=== PATIENT | male | born 1955 | race Caucasian/White ===

== ENCOUNTER 2024-04-21 15:54 | Emergency (ER) | payer OTHER, SELFPAY ==
[2024-04-21 15:56] VITALS: BP 122/66
--- NOTE | 2024-04-21 16:42 | ED.GENMED ---
History of Present Illness
General
Chief Complaint: Head Injury
Source: patient
Exam Limitations: none
Time Seen by Provider: 04/21/24 16:17
History of Present Illness
History of Present Illness:
69-year-old male on [place] presents after trip and fall. He fell 6 days ago. He notes persistent swelling and pain around the left eye and headache with nausea. He also notes neck pain. No loss of consciousness at the time. Not been evaluated
for this yet. No chest pain or shortness of breath. No other complaints
Past History
Past History
ED Past Medical History: Arrthythmia (Paroxysmal atrial fibrillation, ventricular tachycardia), CAD, CHF, HTN, Hypercholesterolemia, IDDM and Other (chronic back pain)
ED Past Surgical History: Appendectomy, Cardiac and Other
Social History
Tobacco: Smoker
Alcohol: None
Drug: None
Personal:
Living: with family
Employment: Retired
Family History
Family History: Other (Noncontributory)
Phy Exam
Physical Exam
Physical Exam:
General: Well-appearing male no acute respiratory distress
HEENT: Normocephalic ecchymosis noted in the periorbital region of the left eye. Pupils equal round reactive to light extraocular motions are intact
Heart: Regular rate and rhythm
Lungs: Clear no wheeze
Musculoskeletal exam: Mild diffuse tenderness about the cervical spine paraspinous area good range of motion all extremities
Neurologic: Normal gait conversing appropriately alert oriented x 3
Course
Orders/Labs/Results
Orders:
Orders
04/21/24 15:56
CT Head W/o Iv Contrast Urgent
Comment:
Reason For Exam: fall on elip[place]
04/21/24 16:25
CT Cervical Spine W/o Iv Contr Urgent
Comment:
Reason For Exam: neck pain after fall
CT Orbits W/o Iv Contrast Urgent
Comment:
Reason For Exam: fall, left periorbital swelling
Vital Signs
Initial and Last Documented VS:
Initial Vital Signs
Temp Pulse Resp BP Pulse Ox
98.2 F 68 18 122/66 97
04/21/24 15:56 04/21/24 15:56 04/21/24 15:56 04/21/24 15:56 04/21/24 15:56
Last Documented Vital Signs
Temp Pulse Resp BP Pulse Ox
98.2 F 60 18 108/65 100
04/21/24 15:56 04/21/24 17:21 04/21/24 17:21 04/21/24 17:21 04/21/24 17:21
MDM/Problems Addressed
Differential Diagnosis Includes:
Mechanical fall with head strike on blood thinner. Concern for skull fracture orbital fracture versus intracranial hemorrhage. Will order CT of head and orbits and cervical spine.
*Critical Care Note
Total Time (30-74mins, 75-104mins- exclusive of procedures): Not Applicable
Update Note
Update Note:
CT of head cervical spine and orbits showed no acute traumatic injury. There is significant degenerative changes throughout the cervical spine with disc bulges. CT of the head is negative for acute finding. There is old fractures noted to the
left periorbital area. Patient reassured. No indication for admission. Stable for discharge
ED Attending Note
-
Portions of this chart may have been created with voice recognition software.� Occasional wrong word or��sound alike� substitutions may have occurred due to the inherent limitations of voice recognition software.
Discharge Plan
Departure
Patient Disposition: Home (Routine Discharge)
Date of Disposition: 04/21/24
Time of Disposition: 18:26
Patient with high blood pressure during this ER visit?: No
Discharge Problem:
Fall
Instructions: Contusion (DC), Minor Head Injury (DC)
Prescriptions:
No Action
carvedilol 12.5 MG tablet
18.75 mg PO BID
aspirin 81 MG tablet,delayed release (DR/EC)
81 mg PO DAILY
metformin 1,000 MG tablet
1,000 mg PO BID@0800,1700 Qty: 60 0RF
insulin aspart U-100 [Novolog FlexPen U-100 Insulin] 300 UNITS/3 ML insulin pen
12 units SC AC
Patient Comments:
10/06/18 SS; PT REPORT HE WILL OCCASIONALLY TAKE MORE AFTER HE EATS WHEN HE RECHECKS HIS BS.
tizanidine 4 MG tablet
4 mg PO BID
gabapentin 400 MG capsule
800 mg PO BID
oxycodone 15 MG tablet
30 mg PO Q6HPRN PRN (Reason: breakthrough pain)
baclofen 20 MG tablet
20 mg PO BID
insulin detemir U-100 [Levemir U-100 Insulin] 1,000 UNITS/10 ML solution
75 units SC HS
atorvastatin 80 MG tablet
80 mg PO QPM Qty: 30 1RF
clopidogrel 75 MG tablet
75 mg PO DAILY Qty: 30 1RF
pantoprazole 40 MG tablet,delayed release (DR/EC)
40 mg PO DAILY Qty: 30 1RF
apixaban [Eliquis] 5 MG tablet
5 mg PO BID Qty: 60 1RF
bupropion HCl 150 MG tablet sustained-release 12 hr
150 mg PO BID
Patient Comments:
take 1 tablet every morning for 3 days, then 1 tablet BID
amiodarone [Pacerone] 200 MG tablet
400 mg PO DAILY
tizanidine 4 MG tablet
4 mg PO DAILYPRN PRN (Reason: spasms)
gabapentin 400 MG capsule
800 mg PO DAILYPRN PRN (Reason: pain)
oxycodone [OxyContin] 20 MG tablet,oral only,ext.rel.12 hr
20 mg PO Q12 0RF
lisinopril 10 MG tablet
5 mg PO DAILY Qty: 30 0RF
Referrals:
Porrino,Lewis., DO [Family Provider] -
Activity Restrictions/Additional Instructions:
Rest. Use Tylenol for pain. Return if worse otherwise follow-up with your doctor.
Interventions
Interventions:
*Risk Screen - Suicide Last Done: 04/21/24 15:56
*General Assessment Last Done: 04/21/24 15:56
*Neglect/Abuse Screening Last Done: 04/21/24 15:56
*ED COVID-19 Vaccine History Last Done: 04/21/24 15:56
ED- Neurological Assessment Last Done: 04/21/24 16:44
ED-Skin Assessment Last Done: 04/21/24 16:45
Discharge Date and Time
Print Language: AZERI
[2024-04-21 17:21] VITALS: BP 108/65
[2024-04-21 18:33] VITALS: BP 121/72
== END 2024-04-21 18:39 | disposition home or self-care (01) ==
LOC: EMR 15:54
PROVIDERS: EMERGENCY PHYSICIAN Student in an Organized Health Care Education/Training Program; FAMILY PHYSICIAN Family Medicine
DX: R22.0 Localized swelling, mass and lump, head (principal); W01.0XXA Fall on same level from slipping, tripping and stumbling without subsequent striking against object, initial encounter; I48.0 Paroxysmal atrial fibrillation; I25.10 Atherosclerotic heart disease of native coronary artery without angina pectoris; I11.0 Hypertensive heart disease with heart failure; I50.9 Heart failure, unspecified; E11.9 Type 2 diabetes mellitus without complications; E78.00 Pure hypercholesterolemia, unspecified; F17.200 Nicotine dependence, unspecified, uncomplicated; Z79.01 Long term (current) use of anticoagulants; Z90.49 Acquired absence of other specified parts of digestive tract
CPT/HCPCS: 99284; 70450; 70480; 72125

== ENCOUNTER 2025-02-06 03:44 | Inpatient (IN) | payer OTHER, SELFPAY ==
[2025-02-05 23:48] LABS: Glucose - Point of Care 134 mg/dl (70-99)
[2025-02-05 23:54] VITALS: BP 99/45
[2025-02-06] VITALS (49 sets, daily range): BP systolic 73–148; BP diastolic 41–121; BMI 39.1; BMI 35.4
--- NOTE | 2025-02-06 | ED.GENMED ---
History of Present Illness
General
Chief Complaint: Change in Mental Status
Source: patient and family
Time Seen by Provider: 02/06/25 00:00
History of Present Illness
History of Present Illness:
70-year-old male presents emergency department accompanied by his daughter and son-in-law. They live out of town but are here for the weekend. They state that he was 'coherent' earlier today. Around 6 PM he came to their storage facility to help
them move things, and they state that he seemed to be progressively tired and looked 'shaky' at times. No tonic-clonic activity noted. They state that he sat in a chair and was falling asleep from time to time which is 'not uncommon' for him.
However, throughout the night, he began to fall asleep on and off which began to concern them. At dinner, he kept falling asleep although they were able to arouse him and get him to eat. With his increasing difficulty in waking him up as the night
progressed they decided to bring him here. Accu-Chek noted here at 134. Patient reportedly has had poor p.o. intake for the last week. Here in the emergency department the patient denies any complaints. He does not drink alcohol heavily and has
not no prior history of liver disease. He does take oxycodone and OxyContin regularly for chronic pain but does not take more than the prescribed dose. He denies any new ingestions. He denies any pain, chest pain, headache, neck pain, dizziness,
fever, chills, nausea, vomiting, new back pain, or other complaints.
Past History
Past History
ED Past Medical History: Arrthythmia (Paroxysmal atrial fibrillation, ventricular tachycardia), CAD, CHF, HTN, Hypercholesterolemia, IDDM and Other (chronic back pain)
ED Past Surgical History: Appendectomy, Cardiac and Other
Social History
Tobacco: Smoker
Alcohol: Occasional
Drug: None
Personal:
Living: with family
Employment: Retired
Family History
Family History: Other (Noncontributory)
Phy Exam
Physical Exam
Physical Exam:
GENERAL: Drowsy but arousable, in no apparent distress
EYE: pupils equal and reactive, no photophobia, EOMI
NECK: Supple, no significant adenopathy.
ENT: o/p clr, mmm.
CARDIAC: Regular rate and rhythm .
LUNGS: Equal breath sounds bilaterally, no acute respiratory distress, occasional wheezing noted, no rales or rhonchi
ABDOMEN: Soft, without focal tenderness, no r/g, no cvat
NEUROLOGICAL: Drowsy but arousable, oriented x 3, [id number] normal, motor 5 out of 5, sensory intact, cranial nerves II through XII intact.
SKIN: Warm and dry, skin intact.
MUSCULOSKELETAL: No edema, well perfused.
PSYCH: Normal and appropriate interaction, patient able to joke with myself and his daughter.
Sepsis
Sepsis Screening
Sepsis Assessment: Severe Sepsis
Sepsis Screening: Hypotension
Sepsis Screen
Sepsis Screen: Severe Sepsis
Date: 02/06/25
Time: 02:09
Course
Orders/Labs/Results
Orders:
Orders
02/05/25 23:58
EKG [Electrocardiogram (*1)] Urgent
Reason for Study: Tachycardia
EKG- Treatment ONCE
02/06/25 00:04
Cardiac Monitoring- Treatment ONCE
Pulse Ox/cont/shift [RESP] Stat
Quantity: 1
02/06/25 00:05
CR Chest - 2 Views Urgent
Comment:
Reason For Exam: ms change
02/06/25 00:06
Acetaminophen Urgent
Alcohol Urgent
Ammonia Urgent
Complete Blood Count/No Diff Urgent
Comprehensive Metabolic Panel Urgent
Salicylate Urgent
02/06/25 00:40
COVID-19 Antigen Urgent
Source: Nasal Swab
Lactic Acid Q4H
Comment: CANCEL 2nd LACTIC ACID IF 1st LACTIC ACID IS LESS THAN 2
Blood Culture Q30M
EMANUEL Source: Blood/Venous
Specimen Description:
Influenza A+B Rapid Molecular Urgent
EMANUEL Source: Nasal Swab
Specimen Description:
02/06/25 01:21
0.9% Sodium Chloride 1000 ml [Nss] 2,000 ml IV NOW STA
02/06/25 01:22
Acetaminophen [Tylenol] 1,000 mg PO NOW STA
02/06/25 01:25
Blood Culture Q30M
EMANUEL Source: Blood/Venous
Specimen Description:
02/06/25 01:33
Fentanyl, Urine Urgent
Urinalysis Reflex To Culture Urgent
Date Specimen was Collected: 02/06/25
Time Specimen was Collected: 01:32
Urine Drug Abuse Screen Urgent
Date Specimen was Collected: 02/06/25
Time Specimen was Collected: 01:32
Urine Microscopic Reflex Cult Urgent
Urine Culture Urgent
EMANUEL Source: U
Specimen Description:
Date Specimen was Collected: 02/06/25
Time Specimen was Collected: 01:32
02/06/25 04:30
Lactic Acid Q4H
Comment: CANCEL 2nd LACTIC ACID IF 1st LACTIC ACID IS LESS THAN 2
Abnormal Lab Results
02/05/25 02/06/25 02/06/25
23:47 00:06 01:33
WBC 13.1 H 10^3/uL
(4.8-10.8)
RBC 3.28 L 10^6/uL
(4.70-6.10)
Hgb 9.9 L g/dL
(13.0-18.0)
Hct 29.2 L %
(39.0-52.0)
Plt Count 75 L 10^3/uL
(130-400)
MPV 13.7 H fL
(7.4-10.4)
Sodium 127 L mmol/L
(135-145)
Chloride 96 L mmol/L
(98-107)
BUN 39 H mg/dl
(9-20)
Creatinine 2.1 H mg/dL
(0.7-1.3)
Glucose 136 H mg/dl
(70-99)
AST 118 H U/L
(17-59)
Ammonia < 9 L umol/L
(9-30)
Urine Urobilinogen 2+ A
(Neg - 1+)
Leukocyte Esterase Rfl 1+ A
(Negative)
Urine Bacteria (Reflex) Many A
(Negative)
Urine Albumin (Reflex) 2+ A
(Neg - Trace)
Salicylates < 1.0 L mg/dl
(2.0-20.0)
Urine Opiates Screen Positive H
(Negative)
Ur Oxycodone Screen Positive H
(Negative)
Acetaminophen < 10 L ug/ml
(10-30)
U Marijuana (THC) Screen Positive H
(Negative)
POC Glucose 134 H mg/dl
(70-99)
02/06/25 00:06
02/06/25 00:06
Vital Signs
Initial and Last Documented VS:
Initial Vital Signs
Pulse Resp
60 14
02/05/25 23:42 02/05/25 23:42
Last Documented Vital Signs
Temp Pulse Resp BP Pulse Ox
100.1 F 66 15 111/95 97
02/06/25 00:20 02/06/25 01:45 02/06/25 01:45 02/06/25 01:41 02/06/25 01:45
*Pulse Oximetry
Patient hypoxic: yes
*Critical Care Note
Total Time (30-74mins, 75-104mins- exclusive of procedures): 35
Update Note
Update Note:
Patient presents to the Emergency Department with increasing sleepiness
Number and Complexity of Problems Addressed at the Encounter
� Chronic conditions affecting care:
� Acute Exacerbation and/or Progression of Chronic Illness:
� Differential Diagnosis includes: But not limited to medication reaction, alcohol intoxication, electrolyte disorder, liver disease, etc. etc. etc.
Amount and/or Complexity of Data to be Reviewed and Analyzed
� I performed an independent evaluation of and my interpretation is:
EKG: EKG, read by me, normal sinus rhythm, inferior Q waves unchanged from prior, no acute ischemia
CT:
Xrays: Chest x-ray read by me questionable left lower lobe infiltrate
Laboratory Studies: Leukocytosis, anemia (slightly worse compared to baseline), thrombocytopenia which is new. Patient also has new hyponatremia, prerenal azotemia, normal lactic acid. Urine not suggestive of infection
Other:
� Review of other/old records reveals: Patient was admitted for TME related to unintentional opioid overdose, discharge summary was reviewed by me
� Clinical information was obtained by an independent historian: Daughter and son-in-law
� Prescriptions/Medications Considered but not given:
� Further testing considered but not performed:
Risk of Complications and/or Morbidity or Mortality of Patient Management
� Social determinants of health affecting care:
� Discussion with other providers (PCP, Hospitalists, Consultants, etc):
� Escalation of care including admission/observation vs risk of discharge considered: Multiple reassessments of patient, clinically suspect sepsis related to pneumonia. His blood pressure transiently dropped however has returned
to normal with IV fluids. We will start antibiotics and admit patient. Family and patient updated. He remains drowsy but arousable and fully oriented without any complaints.
ED Attending Note
-
Portions of this chart may have been created with voice recognition software.� Occasional wrong word or��sound alike� substitutions may have occurred due to the inherent limitations of voice recognition software.
Discharge Plan
Departure
Patient Disposition: Admit
Date of Disposition: 02/06/25
Time of Disposition: 02:07
Admit to: Telemetry
Presentation/result/management discussed w/ accepting MD/DO: Hospitalist
Condition: Fair
Discharge Problem:
Sepsis
Prescriptions:
No Action
carvedilol 12.5 MG tablet
18.75 mg PO BID
aspirin 81 MG tablet,delayed release (DR/EC)
81 mg PO DAILY
metformin 1,000 MG tablet
1,000 mg PO BID@0800,1700 Qty: 60 0RF
insulin aspart U-100 [Novolog FlexPen U-100 Insulin] 300 UNITS/3 ML insulin pen
12 units SC AC
Patient Comments:
10/06/18 SS; PT REPORT HE WILL OCCASIONALLY TAKE MORE AFTER HE EATS WHEN HE RECHECKS HIS BS.
tizanidine 4 MG tablet
4 mg PO BID
gabapentin 400 MG capsule
800 mg PO BID
oxycodone 15 MG tablet
30 mg PO Q6HPRN PRN (Reason: breakthrough pain)
baclofen 20 MG tablet
20 mg PO BID
insulin detemir U-100 [Levemir U-100 Insulin] 1,000 UNITS/10 ML solution
75 units SC HS
atorvastatin 80 MG tablet
80 mg PO QPM Qty: 30 1RF
clopidogrel 75 MG tablet
75 mg PO DAILY Qty: 30 1RF
pantoprazole 40 MG tablet,delayed release (DR/EC)
40 mg PO DAILY Qty: 30 1RF
apixaban [Eliquis] 5 MG tablet
5 mg PO BID Qty: 60 1RF
bupropion HCl 150 MG tablet sustained-release 12 hr
150 mg PO BID
Patient Comments:
take 1 tablet every morning for 3 days, then 1 tablet BID
amiodarone [Pacerone] 200 MG tablet
400 mg PO DAILY
tizanidine 4 MG tablet
4 mg PO DAILYPRN PRN (Reason: spasms)
gabapentin 400 MG capsule
800 mg PO DAILYPRN PRN (Reason: pain)
oxycodone [OxyContin] 20 MG tablet,oral only,ext.rel.12 hr
20 mg PO Q12 0RF
lisinopril 10 MG tablet
5 mg PO DAILY Qty: 30 0RF
Interventions
Interventions:
*Risk Screen - Suicide Last Done: 02/06/25 00:14
*General Assessment Last Done: 02/06/25 00:14
*Neglect/Abuse Screening Last Done: 02/06/25 00:14
*ED- Fall Risk Assessment Last Done: 02/06/25 00:14
*ED COVID-19 Vaccine History Last Done: 02/06/25 00:14
ED- Neurological Assessment Last Done: 02/06/25 00:20
ED Swallowing Screen Last Done: 02/06/25 01:30
Discharge Date and Time
Print Language: TANZANIAN
[2025-02-06 00:45] LABS: Hematocrit 29.2 % (39.0-52.0); Hemoglobin 9.9 g/dL (13.0-18.0); Mean Corp Hgb Conc. 33.9 g/dL (33.0-37.0); Mean Corpuscular Volume 89.0 fL (80.0-94.0); Platelet Count 75 10^3/uL (130-400); Red Cell Dist. Width 13.2 % (11.5-14.5)
[2025-02-06 00:48] LABS: ALT (SGPT) 23 U/L (0-50); AST (SGOT) 118 U/L (17-59); Acetaminophen < 10 ug/ml (10-30); Albumin 3.5 g/dl (3.5-5.0); Alkaline Phosphatase 62 U/L (38-126); Ammonia < 9 umol/L (9-30); Blood Urea Nitrogen 39 mg/dl (9-20); Calcium 8.8 mg/dl (8.4-10.2); Carbon Dioxide 24 mmol/L (22-30); Chloride 96 mmol/L (98-107); Estimated Creatinine Clearance 40 ml/min; Glucose 136 mg/dl (70-99); Potassium 4.5 mmol/L (3.5-5.1); Salicylate < 1.0 mg/dl (2.0-20.0); Sodium 127 mmol/L (135-145); Total Protein 6.5 g/dl (6.3-8.2); eGFR 33.66
[2025-02-06 01:15] LABS: COVID-19 Antigen Negative (Negative)
[2025-02-06] MEDS: NSS 2000 ML IV (01:27)
[2025-02-06] MEDS: TYLENOL 1000 MG PO (01:39)
[2025-02-06 01:46] LABS: Urine Character Clear (Clear)
[2025-02-06 01:56] LABS: Urine Squamous Cell 0-2 /LPF (Few)
[2025-02-06 01:57] LABS: Urine Red Blood Cell 0-2 /HPF (0-2)
[2025-02-06] MEDS: ZOSYN 100 IV (02:30)
--- NOTE | 2025-02-06 02:41 | HPS.HSE ---
Family Physician
-
Family Physician: * NONE
Chief Complaint
-
Altered mental status
History of Present Illness
This is a 70-year-old with past medical history of insulin-dependent diabetes, CAD status post multiple PCI with multiple stents, paroxysmal atrial fibrillation on anticoagulation, history of sustained V. tach status post defibrillator placement,
COPD, hypertension presenting to the emergency department with fatigue weakness and decreased responsiveness.
Patient is available historian but he states he has been feeling weak for about 2 weeks. He says he is had decreased energy. He denies any significant changes in appetite bowel habits abdominal discomfort nausea or vomiting. He denies any
diaphoresis. He denies measuring any fevers at home. He did report having difficulty voiding for the last 1 week. He also reports nocturia. He denies having any flank pain. He denies any dysuria. He denies feeling lightheaded or dizzy. He
reports compliance with his medications. He denies any melena or hematochezia.
Patient was visiting daughter today when they noted that he was sleepy with very constricted pupils. He is easily arousable but then is fatigued and listless and follows commands poorly. They noted no focal deficits. There was no facial droop.
He did not noted that he was shaky likely due to weakness. Patient is unaware of any sick contacts. He has no recent travels nor does he have any insect bites or rash or spends any time in the [place].
On arrival in the emergency department he was hypotensive to 88 systolic, temperature was 100.6, pulse rate was 60. Current blood pressure was 90/40.
Influenza test was negative. COVID test was negative. ECG shows normal sinus rhythm at rate of 68. His UA shows positive leukocyte Estrace with bacteria and few WBCs. White count was 13.1 with a hemoglobin of 9.9 and a platelet of 75. Sodium
was 127 otherwise electrolytes were normal. BUN and creatinine were 39 and 2.1.
X-ray appears unchanged with poor inspiratory effort but no obvious infiltrates.
Medical History
Past Medical History
Past Medical History: Reports Arrhythmia (Paroxysmal atrial fibrillation anticoagulation, history of sustained VT status post MDT ICD 2019,), CAD (PCI to LAD) and IDDM
Past Surgical History: Reports Appendectomy, Cardiac (ICD placement) and Orthopedic
Social History
Tobacco: Smoker
Alcohol: Occasional
Drug: None
Living: With Family
Employment: Retired
Family History
Family History: Not pertinent
Allergies / Home Medications
Allergies reflects when Allergies were last updated in [facility].
Home Medications with original date entered in [employer]
Allergy/Medication List:
Allergies
Allergy/AdvReac Type Severity Reaction Status Date / Time
Iodinated Contrast Media Allergy Rash Verified 04/21/24 16:00
sulfamethoxazole (From Allergy hewitt-sophia Verified 04/21/24 16:00
Bactrim) syndrome
trimethoprim (From Bactrim) Allergy hewitt-sophia Verified 04/21/24 16:00
syndrome
Home Medications
aspirin 81 mg tablet,delayed release 81 mg PO DAILY 06/15/10
carvedilol 12.5 mg tablet 18.75 mg PO BID 06/15/10
metformin 1,000 mg tablet 1,000 mg PO BID@0800,1700 ##60 01/31/13
insulin aspart U-100 100 unit/mL (3 mL) subcutaneous pen (Novolog FlexPen U-100 Insulin aspart) 12 units SC AC 10/25/17
baclofen 20 mg tablet 20 mg PO BID 10/06/18
gabapentin 400 mg capsule 800 mg PO BID 10/06/18
insulin detemir U-100 100 unit/mL subcutaneous solution (Levemir U-100 Insulin) 75 units SC HS 10/06/18
oxycodone 15 mg tablet 30 mg PO Q6HPRN PRN breakthrough pain 10/06/18
tizanidine 4 mg tablet 4 mg PO BID 10/06/18
apixaban 5 mg tablet (Eliquis) 5 mg PO BID #60 tabs 10/11/18
atorvastatin 80 mg tablet 80 mg PO QPM ##30 10/11/18
clopidogrel 75 mg tablet 75 mg PO DAILY ##30 10/11/18
pantoprazole 40 mg tablet,delayed release 40 mg PO DAILY ##30 10/11/18
amiodarone 200 mg tablet (Pacerone) 400 mg PO DAILY 11/12/18
bupropion HCl 150 mg tablet,12 hr sustained-release 150 mg PO BID 11/12/18
gabapentin 400 mg capsule 800 mg PO DAILYPRN PRN pain 11/12/18
tizanidine 4 mg tablet 4 mg PO DAILYPRN PRN spasms 11/12/18
lisinopril 10 mg tablet 5 mg (1/2 x 10 mg) PO DAILY #30 tabs 11/17/18
oxycodone 20 mg tablet,crush resistant,extended release 12 hr (OxyContin) 20 mg PO Q12 11/17/18
Review of Systems
-
History Source: Patient and Family
Constitutional: Reports Chills
EENT: Reports No Symptoms
Respiratory: Reports No Symptoms
Cardiac: Reports No Symptoms
Abdomen/GI: Reports No Symptoms
: Reports Difficulty Voiding
Musculoskeletal: Reports No Symptoms
Skin: Reports No Symptoms
Neurological: Reports Weakness
Endocrine: Reports No Symptoms
Hematologic/Lymphatic: Reports No Symptoms
Psych: Reports No Symptoms
Physical Exam
Vital Signs
Vital Signs
Temp Pulse Resp BP Pulse Ox
99.7 F 60 17 105/47 97
02/06/25 02:31 02/06/25 02:30 02/06/25 02:30 02/06/25 02:08 02/06/25 02:30
Physical Exam
General: Well Developed, Well Nourished, No Apparent Distress and Morbidly Obese
HEENT: NormoCephalic, Moist mucous membranes, Atraumatic, PERRLA and Oxygen
Respiratory: Clear
Cardiac: S1/S2 and Regular Rhythm; No Murmur or Rub
GI: Soft, Non Tender and Normal Bowel Sounds; No Organomegaly
Rectal: Deferred by Provider
Genito-urinary: Deferred by me
Musculoskeletal: No Clubbing, No Cyanosis and No Edema
Skin: No Rash
Neuro: AO x 3 and Nonfocal/grossly intact
Hematologic/Lymphatic: No Lymphadenopathy
Psych: Calm
Laboratory Results
-
02/06/25 00:06
02/06/25 00:06
Laboratory Results
Lactic Acid Cancelled 02/06/25 04:30
Total Bilirubin 1.1 mg/dl (0.2-1.3) 02/06/25 00:06
AST 118 U/L (17-59) H 02/06/25 00:06
ALT 23 U/L (0-50) 02/06/25 00:06
Alkaline Phosphatase 62 U/L (38-126) 02/06/25 00:06
Data Reviewed
-
Diagnostic Radiology: Image Personally Visualized and interpreted
Medical Tests (Nuc Med, Echo, EKG etc): Image Personally Visualized and interpreted
Lab Data: Labs Reviewed by me
Old Records: Reviewed
Impression/Plan
-
IMPRESSION:
70 M h/o CAD s/p multivessel stenting, pAFIB on AC, VTach s/p ICD, COPD, HTN presenting with weakness, fever and decreased responsiveness. Hypotensive on arrival. Tmax 100.6 here. Source unclear. U/A is positive but not markedly so. Xray w/o
clear infiltrates in part limited by body habitus. He is on some oxygen but denies any cough. Hx of voiding difficulty for 1 week but no other signs of a UTI. Denies hx of BPH/stones. Chronic pain with chronic opioid dependence.
PLAN:
1. Sepsis - Source unclear. Suspect urinary versus pulmonary. No GI symptoms. LFTs WNL.
- admit to IMU
- covid/flu negative
- blood cultures sent, ucx sent
- check legionella and pneumococcal ag
- unlikely tick bite as etiology but given cytopenias, will start lyme panel
- IV vanc/zosyn/ for now
- check CT chest to further eval infiltrate, check CT a/p to rule out stone/obstruction
- bladder scan protocol
- s/p 30ml/kg in ED, still hypotensive, will start levophed
- holding entresto, coreg, aldactone for now
2. BASIA - suspect secondary to sepsis
- IV resuscitation and abx
- CT a/p to rule out obstruction
- holding antihypertensives, arni and minerelocorticoid blockade
- renal dose medications
3. Hyponatremia - suspect sepsis
- managemetn as above and re-evalaute
4.CAD
- continue statin aspirin and eliquis
5. AFIB
- amio 200 daily
- continue apixaban 5 bid for now
6. IDDM
- lantus 40 hs at home, continue 20 here
- sliding scale insulin
7. COPD - no signs of acute exacerbation
- nebs prn for now
8. Chronic pain
- holding long acting opioids for hypotension
- prn oxycodone
- renal dose gabapentin
9. Cytopenias - Low Hgb and plt. Patient denies etoh use. Likely from sepis but no recent comparison.
- check b12/folate
- trend for now
- consider liver imaging
DVT PPX - on apixaban
Code status - Full Code
[2025-02-06] MEDS: NSS 500 IV (04:13)
[2025-02-06] MEDS: LEVOPHED 250 IV (04:19)
[2025-02-06] MEDS: VANCOCIN 540 MG IV (05:48)
[2025-02-06] MEDS: SYNTHROID 25 MCG PO (05:49)
--- NOTE | 2025-02-06 06:48 | PTCARENOTE ---
Pt arrived to ICU room 3362 from ER via stretcher at around 0520. Pt is IMU level of care. Received pt on Levophed at 2mcg/min. See med titration flowsheet for details--briefly weaned off Levo but had to turn back on due to MAP <65. Assessment as
documented in nursing shift assessment flowsheet. Admission database completed. SR/SB on monitor 50s-60s with 1st deg AVB and prolonged QT. Currently on 2LNC with SpO2 96%.
[2025-02-06 07:04] LABS: Hematocrit 27.9 % (39.0-52.0); Hemoglobin 9.4 g/dL (13.0-18.0); Mean Corp Hgb Conc. 33.7 g/dL (33.0-37.0); Mean Corpuscular Volume 89.1 fL (80.0-94.0); Platelet Count 73 10^3/uL (130-400); Red Cell Dist. Width 13.5 % (11.5-14.5)
[2025-02-06 07:05] LABS: Cortisol, Random 13.8 ug/dl
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
[2025-02-06] MEDS: DUONEB INH ×3 (07:21→11:15)
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
[2025-02-06 07:41] LABS: Folate 10.9 ng/ml (2.76-20); Vitamin B12 305 pg/ml (239-931)
--- NOTE | 2025-02-06 07:49 | W.CON.NEPH ---
Consultation
-
Date/Time Consultation Requested: 02/06/2025 7:30 AM
Date/Time Consultation Performed: 02/06/2025 7:40 AM
Requesting Provider: Dr. Rodríguez
Performing Provider: Dr. Peres
Reason for Consultation: BASIA/Hyponatremia
Medical History
-
Chief Complaint: BASIA/Hyponatremia
History of Present Illness:
This is a 70-year-old with past medical history of insulin-dependent diabetes, CAD status post multiple PCI with multiple stents, paroxysmal atrial fibrillation on anticoagulation, history of sustained V. tach status post defibrillator placement,
COPD, hypertension presenting to the emergency department with fatigue weakness and decreased responsiveness.
Patient is available historian but he states he has been feeling weak for about 2 weeks. He says he is had decreased energy. He denies any significant changes in appetite bowel habits abdominal discomfort nausea or vomiting. He denies any
diaphoresis. He denies measuring any fevers at home. He did report having difficulty voiding for the last 1 week. He also reports nocturia. He denies having any flank pain. He denies any dysuria. He denies feeling lightheaded or dizzy. He
reports compliance with his medications. He denies any melena or hematochezia.
Patient was visiting daughter today when they noted that he was sleepy with very constricted pupils. He is easily arousable but then is fatigued and listless and follows commands poorly. They noted no focal deficits. There was no facial droop.
He did not noted that he was shaky likely due to weakness. Patient is unaware of any sick contacts. He has no recent travels nor does he have any insect bites or rash or spends any time in the [place].
On arrival in the emergency department he was hypotensive to 88 systolic, temperature was 100.6, pulse rate was 60. Current blood pressure was 90/40.
Influenza test was negative. COVID test was negative. ECG shows normal sinus rhythm at rate of 68. His UA shows positive leukocyte Estrace with bacteria and few WBCs. White count was 13.1 with a hemoglobin of 9.9 and a platelet of 75. Sodium
was 127 otherwise electrolytes were normal. BUN and creatinine were 39 and 2.1. Nephrology was consulted for acute kidney injury and hyponatremia in the setting of suspected sepsis.
Past Medical History
(Paroxysmal atrial fibrillation anticoagulation, history of sustained VT status post MDT ICD 2019,), CAD (PCI to LAD) and IDDM
Appendectomy, Cardiac (ICD placement) and Orthopedic
Social History
Tobacco: Smoker
Alcohol: Occasional
Family History
Family History: Not Pertinent
Allergies / Home Medications
Allergy/AdvReac Type Severity Reaction Status Date / Time
Iodinated Contrast Media Allergy Rash Verified 04/21/24 16:00
sulfamethoxazole (From Allergy hewitt-sophia Verified 04/21/24 16:00
Bactrim) syndrome
trimethoprim (From Bactrim) Allergy hewitt-sophia Verified 04/21/24 16:00
syndrome
�Medication �Instructions �Recorded �Confirmed �Type
aspirin 81 mg tablet,delayed 81 mg PO DAILY 06/15/10 02/06/25 History
release
carvedilol 12.5 mg tablet 18.75 mg PO BID 06/15/10 02/06/25 History
metformin 1,000 mg tablet 1,000 mg PO BID@0800,1700 ##60 01/31/13 11/12/18 Rx
insulin aspart U-100 100 unit/mL 12 units SC AC 10/25/17 11/12/18 History
(3 mL) subcutaneous pen (Novolog
FlexPen U-100 Insulin aspart)
baclofen 20 mg tablet 20 mg PO BID 10/06/18 02/06/25 History
gabapentin 400 mg capsule 800 mg PO BID 10/06/18 02/06/25 History
insulin detemir U-100 100 unit/mL 40 units SC 10/06/18 02/06/25 History
subcutaneous solution (Levemir
U-100 Insulin)
oxycodone 15 mg tablet 30 mg PO Q6HPRN PRN breakthrough 10/06/18 02/06/25 History
pain
tizanidine 4 mg tablet 4 mg PO BID 10/06/18 11/12/18 History
apixaban 5 mg tablet (Eliquis) 5 mg PO BID #60 tabs 10/11/18 02/06/25 Rx
atorvastatin 80 mg tablet 80 mg PO QPM ##30 10/11/18 02/06/25 Rx
clopidogrel 75 mg tablet 75 mg PO DAILY ##30 10/11/18 11/12/18 Rx
amiodarone 200 mg tablet (Pacerone) 400 mg PO DAILY 11/12/18 02/06/25 History
bupropion HCl 150 mg tablet,12 hr 150 mg PO BID 11/12/18 02/06/25 History
sustained-release
tizanidine 4 mg tablet 4 mg PO DAILYPRN PRN spasms 11/12/18 11/12/18 History
oxycodone 20 mg tablet,crush 20 mg PO Q12 11/17/18 Rx
resistant,extended release 12 hr
(OxyContin)
alprazolam 0.25 mg tablet 0.25 mg PO TID PRN Reduction Of 02/06/25 02/06/25 History
Transepidermal Water Loss
dulaglutide 0.75 mg/0.5 mL 0.75 mg SC QWEEK 02/06/25 02/06/25 History
subcutaneous pen injector
(Trulicity)
furosemide 20 mg tablet 20 mg PO DAILY 02/06/25 02/06/25 History
levothyroxine 25 mcg tablet 25 mcg PO DAILY 02/06/25 02/06/25 History
pantoprazole 40 mg tablet,delayed 40 mg PO DAILY 02/06/25 02/06/25 History
release
sacubitril 24 mg-valsartan 26 mg 1 tab PO BID 02/06/25 02/06/25 History
tablet
spironolactone 25 mg tablet 25 mg PO DAILY 02/06/25 02/06/25 History
tamsulosin 0.4 mg capsule 0.4 mg PO DAILY 02/06/25 02/06/25 History
trazodone 50 mg tablet 50 mg PO HS 02/06/25 02/06/25 History
Review of Systems
-
History Source: Patient
All other systems: Negative unless noted
Constitutional: Fatigue
Physical Exam
Vital Signs
Vital Signs
Temp Pulse Resp BP Pulse Ox
99.2 F 58 19 115/60 94
02/06/25 05:38 02/06/25 07:30 02/06/25 07:30 02/06/25 07:19 02/06/25 07:30
Lab Results
WBC 11.1 10^3/uL (4.8-10.8) H 02/06/25 06:00
RBC 3.13 10^6/uL (4.70-6.10) L 02/06/25 06:00
Hgb 9.4 g/dL (13.0-18.0) L 02/06/25 06:00
Hct 27.9 % (39.0-52.0) L 02/06/25 06:00
Plt Count 73 10^3/uL (130-400) L 02/06/25 06:00
Sodium 127 mmol/L (135-145) L 02/06/25 00:06
Potassium 4.5 mmol/L (3.5-5.1) 02/06/25 00:06
Chloride 96 mmol/L (98-107) L 02/06/25 00:06
Carbon Dioxide 24 mmol/L (22-30) 02/06/25 00:06
BUN 39 mg/dl (9-20) H 02/06/25 00:06
Creatinine 2.1 mg/dL (0.7-1.3) H 02/06/25 00:06
eGFR 33.66 02/06/25 00:06
Glucose 136 mg/dl (70-99) H 02/06/25 00:06
Calcium 8.8 mg/dl (8.4-10.2) 02/06/25 00:06
Albumin 3.5 g/dl (3.5-5.0) 02/06/25 00:06
Physical Exam
General: AOx3, Nontoxic , NAD
HEENT: PERRL, EOMI, Anicteric, Conjunctivae Clear, Ear/Nose Intact, Hearing Normal, Oropharynx Clear/Moist, Dentition Intact, Facial Symmetry, Neck Supple, Neck: Trachea Midline, No JVD and No Thyromegaly, no Bruits
Respiratory: Coarse to auscultation bilaterally, inspiratory wheezing with normal lung excursion
Cardiac: S1/S2 and Regular Rate/Rhythm , right anterior chest wall cardiac device
Breast: Deferred by me
Abdomen: Soft, Nontender, Nondistended, Normal Bowel Sounds and No Hepatosplenomegaly
Rectal: Deferred by Provider
Genito-urinary: No Costovertebral Tenderness
Extremities: No Clubbing, No Cyanosis and No Edema
Skin: No Rash or open lesions
Neuro: Nonfocal/Grossly Intact, CN II-XII (Intact) and Strength (Musculoskeletal exam 5 out of 5 both upper and lower extremities)
Hematologic/Lymphatic: No Cervical Lymphadenopathy, No Submandibular Lymphadenopathy and No Supraclavicular Lymphadenopathy
Psych: Mood/afflect pleasant, Insight/judgement good and Appropriate
Vascular: plus 1 pedal and radial pulses
Data Reviewed
-
Radiology: Image Personally Visualized and interpreted (Chest x-ray personally reviewed: Left lower lung opacity possibly atelectasis or effusion, right anterior chest wall pacemaker possible ICD)
Labs: Labs Reviewed by me (bmp , cbc, UA)
Old Records: Reviewed (1.0 creatinine11/20/18)
Assessment/Plan
-
Impression:
Sepsis (fever hypotension)
Acute kidney injury
Hyponatremia
Coronary artery disease
Atrial fibrillation
Diabetes
COPD
Plan:
BASIA:
- Likely prerenal etiology in setting of evolving sepsis with hemodynamic instability
-Supporting blood pressure to keep MAP at 65 with isotonic IV fluids and norepinephrine pressor support
-Obtain FeNa
-Vancomycin and Zosyn to be renally dosed for GFR of ~40cc/minute
- Check postvoid bladder scan to assure there is no obstructive component
- Holding Lasix and Entresto
Hyponatremia
-Likely function is elevated ADH in the setting of hypotension
- Fluid restriction
- Check urine osmolality
Patient is critically ill with suspected underlying evolving sepsis acute renal failure and hyponatremia with subsequent hemodynamic instability requiring pressor support
35 minutes critical care time spent with patient
Total Time Spent with Patient (in minutes): 35
[2025-02-06] MEDS: ELIQUIS 5 MG PO ×2 (08:03→20:12)
[2025-02-06] MEDS: NOVOLOG FLEXPEN-MODERATE RESISTANCE SC (08:03)
[2025-02-06] MEDS: ASPIR LOW (ENTERIC COATED) 81 MG PO (08:03)
[2025-02-06] MEDS: FLOMAX 0.4 MG PO (08:03)
[2025-02-06] MEDS: PROTONIX 40 MG PO (08:03)
[2025-02-06] MEDS: PACERONE 400 MG PO (08:04)
[2025-02-06] MEDS: ZOSYN 50 IV ×3 (08:05→20:12)
[2025-02-06 08:14] LABS: Glucose - Point of Care 110 mg/dl (70-99)
--- NOTE | 2025-02-06 09:28 | W.PN.HOSP.TC ---
Today's Communication/Plan
-
.
Assessment / Plan
Assessment / Plan
Physical Exam
General: Well Developed, Well Nourished, No Apparent Distress and Morbidly Obese
HEENT: NormoCephalic, Moist mucous membranes, Atraumatic, PERRLA and Oxygen
Respiratory: Clear
Cardiac: S1/S2 and Regular Rhythm; No Murmur or Rub
GI: Soft, Non Tender and Normal Bowel Sounds; No Organomegaly
Rectal: Deferred by Provider
Genito-urinary: Deferred by me
Musculoskeletal: No Clubbing, No Cyanosis and No Edema
Skin: No Rash
Neuro: AO x 3 and Nonfocal/grossly intact
Hematologic/Lymphatic: No Lymphadenopathy
Psych: Calm
70 M h/o CAD s/p multivessel stenting, pAFIB on AC, VTach s/p ICD, COPD, HTN presenting with weakness, fever and decreased responsiveness. Hypotensive on arrival. Tmax 100.6 here. Source unclear. U/A is positive but not markedly so. Xray w/o
clear infiltrates in part limited by body habitus. He is on some oxygen but denies any cough. Hx of voiding difficulty for 1 week but no other signs of a UTI. Denies hx of BPH/stones. Chronic pain with chronic opioid dependence.
PLAN:
# Septic shock POA/ severe Sepsis POA
- Source unclear. Suspect urinary in addition to respiratory
I d/w pulmonary doctor, seems c/w aspiration PNA
No GI symptoms. LFTs WNL.
- covid/flu negative
- blood cultures sent, ucx sent
- check legionella and pneumococcal ag
- unlikely tick bite as etiology but given cytopenias, will start lyme panel
- IV vanc/Zosyn/ for now
- check CT chest to further eval infiltrate, check CT a/p to rule out stone/obstruction
- bladder scan protocol
- s/p 30ml/kg in ED, still hypotensive, will start levophed
- holding Entresto, Coreg, Aldactone for now
2. BASIA - suspect secondary to sepsis
- IV resuscitation and abx
- CT a/p to rule out obstruction
- holding BP agents
- renal dose medications
3. Hyponatremia - suspect sepsis
4.CAD
No chest pain
- continue statin aspirin and eliquis
5. Paroxysmal AFIB
- amio 200 daily
- continue apixaban 5 bid for now
Check head CT due to confusion history
No falls at home
6. IDDM
- lantus 40 hs at home, continue 20 here
- sliding scale insulin
7. COPD - no signs of acute exacerbation
- nebs prn for now
8. Chronic pain
- holding long acting opioids for hypotension
- prn oxycodone
- renal dose gabapentin
9. Pancytopenias - Low Hgb and plt. Patient denies etoh use. Likely from sepsis but no recent comparison.
- check b12/folate
- trend for now
f/w Abdomen CT
DVT PPX - on apixaban
Code status - Full Code
Total time spent to see the patient, examine the patient, review data and lab results, discuss treatment plan with patient, nursing staff around 55 minutes�
Anticipated Discharge: > 48 hours
Subjective/Interval History
-
Date of Service: February 06, 2025
No chest pain
No abd pain
He feels better
No headache or confusion
Objective Data
-
Labs:
Laboratory Results
02/06/25 02/06/25
00:06 06:00
WBC 13.1 H 11.1 H
Hgb 9.9 L 9.4 L
Hct 29.2 L 27.9 L
Plt Count 75 L 73 L
Sodium 127 L
Potassium 4.5
Chloride 96 L
Carbon Dioxide 24
BUN 39 H
Creatinine 2.1 H
Glucose 136 H
Calcium 8.8
Total Bilirubin 1.1
AST 118 H
ALT 23
Alkaline Phosphatase 62
Vital Signs:
Vital Signs
Temp Pulse Resp BP Pulse Ox
98.4 F 59 19 139/76 94
02/06/25 08:00 02/06/25 08:04 02/06/25 07:30 02/06/25 08:04 02/06/25 07:30
I&O
02/05/25 02/06/25 02/07/25
06:59 06:59 06:59
Intake Total 547.5 / 547.5
Output Total 500 / 500
Balance 47.5 / 47.5
[2025-02-06] MEDS: ROXICODONE 5 MG PO ×2 (10:49→20:13)
[2025-02-06] MEDS: LIORESAL 20 MG PO ×2 (10:49→20:13)
[2025-02-06] MEDS: DUONEB 3 ML INH ×3 (11:29→19:16)
[2025-02-06 11:39] LABS: Troponin I 0.035 ng/ml
[2025-02-06] MEDS: NEURONTIN 300 MG PO ×2 (11:53→20:12)
[2025-02-06 11:57] LABS: Glucose - Point of Care 162 mg/dl (70-99)
[2025-02-06] MEDS: VIBRAMYCIN 100 MG PO ×2 (12:37→20:12)
--- NOTE | 2025-02-06 12:56 | PTCARENOTE ---
pt drowsy but easily aroused , he is alert and has oriented conversation, NSR on monitor , he was on norepinephrine 2 mcg this am and now weaned off , tolerating diet ,he had a CT of head abdomen and pelvis today , urine is positive for legionella
, pt was started on Doxycycline
[2025-02-06] MEDS: NOVOLOG FLEXPEN-MODERATE RESISTANCE 1 UNITS SC ×2 (13:19→17:45)
--- NOTE | 2025-02-06 14:14 | PTCARENOTE ---
no urine output , pt having difficulty with voiding , he was bladder scanned and then straight cath
--- NOTE | 2025-02-06 15:04 | ED.GENMED ---
History of Present Illness
General
Chief Complaint: Change in Mental Status
Time Seen by Provider: 02/06/25 00:00
Past History
Past History
ED Past Medical History: Arrthythmia (Paroxysmal atrial fibrillation, ventricular tachycardia), CAD, CHF, HTN, Hypercholesterolemia, IDDM and Other (chronic back pain)
ED Past Surgical History: Appendectomy, Cardiac and Other
Social History
Tobacco: Smoker
Alcohol: Occasional
Drug: None
Personal:
Living: with family
Employment: Retired
Family History
Family History: Other (Noncontributory)
Sepsis
Sepsis Screen
Sepsis Screen: Severe Sepsis
Date: 02/06/25
Time: 15:04
Course
Orders/Labs/Results
Orders:
Orders
02/05/25 23:58
EKG- Treatment ONCE
02/06/25 00:04
Cardiac Monitoring- Treatment ONCE
Pulse Ox/cont/shift [RESP] Stat
Quantity: 1
02/06/25 00:05
CR Chest - 2 Views Urgent
Comment:
Reason For Exam: ms change
02/06/25 00:06
Acetaminophen Urgent
Alcohol Urgent
Ammonia Urgent
Complete Blood Count/No Diff Urgent
Comprehensive Metabolic Panel Urgent
Salicylate Urgent
02/06/25 00:40
COVID-19 Antigen Urgent
Source: Nasal Swab
Lactic Acid Q4H
Comment: CANCEL 2nd LACTIC ACID IF 1st LACTIC ACID IS LESS THAN 2
Blood Culture Q30M
EMANUEL Source: Blood/Venous
Specimen Description:
Influenza A+B Rapid Molecular Urgent
EMANUEL Source: Nasal Swab
Specimen Description:
02/06/25 01:21
0.9% Sodium Chloride 1000 ml [Nss] 2,000 ml IV NOW STA
02/06/25 01:22
Acetaminophen [Tylenol] 1,000 mg PO NOW STA
02/06/25 01:25
Blood Culture Q30M
EMANUEL Source: Blood/Venous
Specimen Description:
02/06/25 01:33
Fentanyl, Urine Urgent
Urinalysis Reflex To Culture Urgent
Date Specimen was Collected: 02/06/25
Time Specimen was Collected: 01:32
Urine Drug Abuse Screen Urgent
Date Specimen was Collected: 02/06/25
Time Specimen was Collected: 01:32
Urine Microscopic Reflex Cult Urgent
Legionella Urinary Antigen Urgent
EMANUEL Source: U
Specimen Description:
Strep pneumoniae Antigen Urgent
EMANUEL Source: U
Specimen Description:
Urine Culture Urgent
EMANUEL Source: U
Specimen Description:
Date Specimen was Collected: 02/06/25
Time Specimen was Collected: 01:32
02/06/25 02:07
Piperacillin/Tazo 4.5 Gram [Zosyn] 4.5 gram in 100 ml IV NOW
02/06/25 03:20
0.9% Sodium Chloride 500 ml [Nss] 500 ml IV BOLUS
02/06/25 03:21
Admit/Transfer Patient As Directed
Co-Sign Provider:
Level of Care: Inpatient admission
Assign to:: IMU- Intermediate Care
Physician / Group: Elvia
Diagnosis: Sepsis
Reason for Hospitalization: Sepsis
Expected length of stay greater than two midnights?: Yes
ELOS- Estimated Length of Stay in days: 2
I certify the patient meets the requirements for IP care: Yes
PRN Pain Medication Management As Directed
May give lesser potent ordered pain med per pt: Yes
preference::
Protocol:: Medication orders for pain may be administered in a
manner that supports deferring to patient preference
when the pt is:
- Requesting an ordered lesser potent pain medication.
Least to most potent pain medications are defined
as: acetaminophen < NSAID < tramadol < opioids
(morphine, oxycodone, hydromorphone).
- Requesting a lesser dose of the same medication IF
ORDERED.
- Requesting a less intrusive route of administration
if both routes are prescribed by the provider (PO <
IV).
02/06/25 03:23
Code Status As Directed
Resuscitation Status: Full Code
02/06/25 03:30
NORepinephrine 4 MG/250 ML [Levophed] 4 mg in 250 ml IV PER PROTOCOL
Initial dose in mcg/min, then titrate:: 2
Titrate to keep:: MAP > 65 mmHg
Titrate by mcg/min:: 1-2 mcg/min
Frequency of titrations (minutes):: 5
Maximum dose in ICU in mcg/min:: 30
Maximum dose in IMU in mcg/min:: 8
Maximum dose in IVU in mcg/min:: 4
Begin to taper infusion when:: Remained at goal for 4hrs
Taper by mcg/min:: 1-2 mcg/min
Frequency of taper (minutes) if patient maintains goal:: 30
Taper to off?: Yes
If infusion off & no longer maintaining goal:: Contact Provider
02/06/25 05:20
Ipratropium/Albuterol Sulfate [Duoneb] 3 ml INH R Q4HPRN PRN
Oxycodone [Roxicodone] 5 mg PO Q4HPRN PRN
VANCOMYCIN Pharmacy to Dose [VANCOCIN Pharmacy to Dose] 1 each Pharmacy To Prepare [Call Pharmacy To Prepare] 0 ml IV PER PROTOCOL
Vancomycin [Vancocin] 2,000 mg 0.9% Sodium Chloride 500 ml [Nss] 500 ml IV NOW
02/06/25 05:20
Consult Notification Routine
Specialty to Notify: Infectious Disease
Date consulting provider notified: 02/06/25
Time consulting provider notified: 07:07
Notified:: Provider
INFECTIOUS DISEASE CONSULT Routine
Consulting Provider: Rakan Castro
Was physician already notified: No
Reason for consult: sepsis, source unclear, pulm or renal
VTE Contraindication Routine
VTE Mechanical Device Contraindication: Medical Contraindication
Pharmocologic Contraindication: Medical Contraindication
Activity As Directed
Activity Level: With Assistance
Bedside Glucose Monitoring As Directed
Frequency: AC&HS
Bladder Scan As Directed
Follow Bladder Retention/Intermittent Cath Algorithm?: Yes
PRN if no void in __ hours: 6
Frequency: Per Retention Algorithm
If Bladder Scan Result >: 400
then:: Straight cath
Intake/ Output As Directed
Frequency: Per unit guidelines
Straight Cath As Directed
Frequency: Per Retention Algorithm
Additional Instructions: straight cath as needed per acute urinary retention algorithm for 24 hrs
Additional Instructions: for bladder scan greater than 400 mL
Vital Signs As Directed
Frequency: Per unit guidelines
O2 Therapy [RESP] Routine
Nasal Cannula Liter Flow: 2 LPM
Titrate/Wean O2 to maintain O2 sat greater than (%): 92
02/06/25 Breakfast
1800 calorie (15 carb) Diabetic
At Your Request: Full Participation
Fluid Restriction: 1500 mL/day (50 oz)
Complete Blood Count/No Diff IN AM
Cortisol, Random IN AM
Glycohemoglobin (HgbA1c) IN AM
Lactic Acid IN AM
02/06/25 07:30
Insulin Aspart Corrective Mod [Novolog Flexpen-Moderate Resistance] See Protocol SC AC
02/06/25 08:00
Amiodarone [Pacerone] 400 mg PO DAILY
Apixaban [Eliquis] 5 mg PO BID
Aspirin Low Dose EC [Aspir Low (Enteric Coated)] 81 mg PO DAILY
Baclofen [Lioresal] 20 mg PO BID
Gabapentin [Neurontin] 300 mg PO BID
Ipratropium/Albuterol Sulfate [Duoneb] 3 ml INH R QID
Pantoprazole [Protonix] 40 mg PO DAILY
Piperacillin/Tazo 3.375 Gram [Zosyn] 3.375 gram in 50 ml IV Q6H
02/06/25 18:00
Atorvastatin [Lipitor] 80 mg PO QPM
02/06/25 22:00
Insulin Glargine Lantus [Lantus] 20 units Subcutaneous Insulin Syringe [Syringe-Insulin] 0 unit SC HS
Abnormal Lab Results
02/05/25 02/06/25 02/06/25
23:47 00:06 01:33
WBC 13.1 H 10^3/uL
(4.8-10.8)
RBC 3.28 L 10^6/uL
(4.70-6.10)
Hgb 9.9 L g/dL
(13.0-18.0)
Hct 29.2 L %
(39.0-52.0)
Plt Count 75 L 10^3/uL
(130-400)
MPV 13.7 H fL
(7.4-10.4)
Sodium 127 L mmol/L
(135-145)
Chloride 96 L mmol/L
(98-107)
BUN 39 H mg/dl
(9-20)
Creatinine 2.1 H mg/dL
(0.7-1.3)
Glucose 136 H mg/dl
(70-99)
AST 118 H U/L
(17-59)
Ammonia < 9 L umol/L
(9-30)
Urine Urobilinogen 2+ A
(Neg - 1+)
Leukocyte Esterase Rfl 1+ A
(Negative)
Urine Bacteria (Reflex) Many A
(Negative)
Urine Albumin (Reflex) 2+ A
(Neg - Trace)
Salicylates < 1.0 L mg/dl
(2.0-20.0)
Urine Opiates Screen Positive H
(Negative)
Ur Oxycodone Screen Positive H
(Negative)
Acetaminophen < 10 L ug/ml
(10-30)
U Marijuana (THC) Screen Positive H
(Negative)
POC Glucose 134 H mg/dl
(70-99)
02/06/25 00:06
02/06/25 00:06
Vital Signs
Initial and Last Documented VS:
Initial Vital Signs
Pulse Resp
60 14
02/05/25 23:42 02/05/25 23:42
Last Documented Vital Signs
Temp Pulse Resp BP Pulse Ox
99.9 F 59 17 111/55 94
02/06/25 11:41 02/06/25 14:00 02/06/25 14:00 02/06/25 14:00 02/06/25 14:00
*Pulse Oximetry
SaO2: 94
Nasal Cannula flow liters per minute: 2
ED Attending Note
-
Portions of this chart may have been created with voice recognition software.� Occasional wrong word or��sound alike� substitutions may have occurred due to the inherent limitations of voice recognition software.
Discharge Plan
Departure
Patient Disposition: Admit
Date of Disposition: 02/06/25
Time of Disposition: 02:07
Admit to: Telemetry
Presentation/result/management discussed w/ accepting MD/DO: Hospitalist
Condition: Fair
Discharge Problem:
Sepsis
Interventions
Interventions:
*General Assessment Last Done: 02/06/25 00:14
*Neglect/Abuse Screening Last Done: 02/06/25 00:14
*ED- Fall Risk Assessment Last Done: 02/06/25 00:14
*Nursing Disposition Last Done: 02/06/25 05:00
ED- Neurological Assessment Last Done: 02/06/25 00:20
ED Swallowing Screen Last Done: 02/06/25 01:30
Discharge Date and Time
Discharge Date/Time: 02/06/25 05:00
[2025-02-06] MEDS: LIPITOR 80 MG PO (17:46)
[2025-02-06 17:56] LABS: Glucose - Point of Care 152 mg/dl (70-99)
--- NOTE | 2025-02-06 19:00 | PTCARENOTE ---
Received pt. at 1900. Pt. currently in bed. Drowsy, but arousable. Oriented. Afebrile. Heart rhythm sinus. Blood pressure normotensive. Currently on nasal cannula. Lungs sound diminished. PO diet. Poor appetite. Pt. unable to void earlier, straight
cathed by prior RN. Will follow up with bladder scan and straight cath as needed. Skin as documented. Discussed plan of care. Vital signs stable at this time.
[2025-02-06] MEDS: ROXICODONE 10 MG PO (22:45)
[2025-02-06] MEDS: LANTUS 0.2 UNITS SC (22:51)
[2025-02-06 23:01] LABS: Glucose - Point of Care 211 mg/dl (70-99)
[2025-02-07] VITALS (14 sets, daily range): BP systolic 98–149; BP diastolic 58–83; PULSE 64; O2SAT 95; BMI 35.8
[2025-02-07] MEDS: ZOSYN 50 IV ×3 (01:55→14:05)
[2025-02-07] MEDS: ROXICODONE 10 MG PO (03:50)
--- NOTE | 2025-02-07 04:30 | PTCARENOTE ---
Pt. continues to c/o pain. PRN medication given, see MAR. AM labs drawn. Vital signs stable at this time.
[2025-02-07 04:50] LABS: Blood Urea Nitrogen 28 mg/dl (9-20); Calcium 8.1 mg/dl (8.4-10.2); Carbon Dioxide 24 mmol/L (22-30); Chloride 103 mmol/L (98-107); Estimated Creatinine Clearance 64 ml/min; Glucose 156 mg/dl (70-99); Potassium 4.0 mmol/L (3.5-5.1); Sodium 132 mmol/L (135-145); eGFR 54.75
[2025-02-07 05:00] LABS: Hematocrit 32.5 % (39.0-52.0); Hemoglobin 10.7 g/dL (13.0-18.0); Mean Corp Hgb Conc. 32.9 g/dL (33.0-37.0); Mean Corpuscular Volume 89.3 fL (80.0-94.0); Platelet Count 96 10^3/uL (130-400); Red Cell Dist. Width 13.5 % (11.5-14.5)
[2025-02-07] MEDS: SYNTHROID 25 MCG PO (05:10)
[2025-02-07] MEDS: DUONEB 3 ML INH ×4 (07:31→20:20)
[2025-02-07 08:10] LABS: Troponin I 0.018 ng/ml
[2025-02-07 08:38] LABS: Glycohemoglobin (HgbA1c) 6.9 % (4.0-5.6)
[2025-02-07 08:52] LABS: Glucose - Point of Care 125 mg/dl (70-99)
[2025-02-07] MEDS: NOVOLOG FLEXPEN-MODERATE RESISTANCE SC (08:56)
[2025-02-07] MEDS: ASPIR LOW (ENTERIC COATED) 81 MG PO (08:57)
[2025-02-07] MEDS: PACERONE 400 MG PO (08:57)
[2025-02-07] MEDS: NEURONTIN 300 MG PO ×2 (08:57→19:55)
[2025-02-07] MEDS: ELIQUIS 5 MG PO ×2 (08:57→19:56)
[2025-02-07] MEDS: FLOMAX 0.4 MG PO (08:57)
[2025-02-07] MEDS: OXYCONTIN (CONTROLLED RELEASE) 20 MG PO ×2 (08:57→19:55)
[2025-02-07] MEDS: LIORESAL 20 MG PO ×2 (08:57→19:59)
[2025-02-07] MEDS: VIBRAMYCIN 100 MG PO ×2 (08:57→19:55)
[2025-02-07] MEDS: PROTONIX 40 MG PO (08:57)
--- NOTE | 2025-02-07 09:09 | W.PN.ID1 ---
Date of Service
Date of Service: February 07, 2025
Today's Communication
Continue antibiotics. See below�
Assessment / Plan
Legionella pneumonia
Fever
Leukocytosis
Acute encephalopathy
Hypotension; now off pressors.
Anemia
Thrombocytopenia
Hyponatremia
BASIA
P A-fib
CAD; MD x 4
CHF
HTN
HLD
DM type II
Chronic back pain
Recommendations:
Chest CT yesterday revealed large left lower lobe pneumonia and Legionella urinary antigen found to be positive.
Doxycycline initiated. Will continue.
Vancomycin previously discontinued.
Discontinue further Zosyn.
Upon further questioning, patient gives no significant exposure history for Legionella.
Monitor white count and temperature curve.
����������������������������������������������������������
Chief Complaint
-: Pneumonia (Legionella)
Subjective / Review of Systems
Review of Systems: No Fever, Cough and No Sputum Production
Vital Signs / Physical Exam
Vital Signs
Vital Signs
Temp Pulse Resp BP Pulse Ox
98.1 F 63 21 136/59 96
02/07/25 07:51 02/07/25 09:00 02/07/25 09:00 02/07/25 08:57 02/07/25 07:32
Physical Exam
Constitutional: No Acute Distress, Comfortable and Non-toxic
Eyes: Sclera Anicteric
Cardiovascular: S1/S2; Negative S3/S4
Pulmonary: Non Labored
Gastrointestinal: Soft, Non Tender, Distended and Normal Bowel Sounds
Neurological: Awake and Alert
Psychological: Calm
Objective Data
Lab Data
Lab Results
02/07/25 04:08
02/07/25 04:08
Estimated Creat Clear 64 ml/min 02/07/25 04:08
Lactic Acid 0.7 mmol/L (0.7-2.0) 02/06/25 06:00
Total Bilirubin 1.1 mg/dl (0.2-1.3) 02/06/25 00:06
AST 118 U/L (17-59) H 02/06/25 00:06
ALT 23 U/L (0-50) 02/06/25 00:06
Alkaline Phosphatase 62 U/L (38-126) 02/06/25 00:06
Most recent labs reviewed.
Micro Results:
02/06/25 01:25 Blood Culture - Preliminary
Blood/Venous No Growth in 24 hours- Final report to follow
02/06/25 00:40 Blood Culture - Preliminary
Blood/Venous No Growth in 24 hours- Final report to follow
02/06/25 10:24 Blood Parasites Smear - Final
Blood/Venous
02/06/25 06:00 Nasal Screen MRSA (PCR) - Final
Nose MRSA not detected - performed by PCR methodology.
02/06/25 01:33 Legionella Urinary Antigen - Final
Urine Positive for L. pneumophila Ag
Streptococcus pneumoniae Antigen (M - Final
Negative for Streptococcus pneumoniae antigen.
A negative result does not exclude infection with
Streptococcus pneumoniae. Clinical correlation is
recommended.
02/06/25 01:33 Urine Culture - Pending
Urine
02/06/25 00:40 Influenza Types A & B (TIFFANIE) - Final
Nasal Swab Negative for Influenza A & B, NAAT
Negative results must be combined with clinical observations
and patient history.
Nucleic Acid Amplification test (NAAT)performed on the
[employer] platform.
Imaging:
02/06/2025 CT abdomen/pelvis, CT chest: severe confluent consolidation in the superior segment of the left lower lobe with air bronchograms. Scattered patchy ground glass densities throughout the right upper lobe. No pleural effusion. No
pericardial effusion or enlarged lymph nodes.
02/06/2025 CXR (2 view): small left pleural effusion with associated consolidation. Right lung is clear. No visualized pneumothorax. Please see full dictation for additional detail.
--- NOTE | 2025-02-07 09:11 | W.PN.HOSP.TC ---
Today's Communication/Plan
-
ok to transfer to tele
c/w antibiotic
encourage ambulation
resume pain medications slowly
ok for diet
Wean down O2 requirements
Assessment / Plan
Assessment / Plan
Physical Exam
General: No Apparent Distress and Morbidly Obese
HEENT: NormoCephalic, Moist mucous membranes, Atraumatic, PERRLA and Oxygen
Respiratory: + rales
Cardiac: S1/S2
GI: Soft, Non Tender and Normal Bowel Sounds;
Genito-urinary: No hematuria
Musculoskeletal: No Clubbing, No Cyanosis and No Edema
Skin: No Rash
Neuro: AO x 3 and Nonfocal/grossly intact
Psych: Calm
70 M h/o CAD s/p multivessel stenting, pAFIB on AC, VTach s/p ICD, COPD, HTN presenting with weakness, fever and decreased responsiveness. Hypotensive on arrival. Tmax 100.6 here. Source unclear. U/A is positive but not markedly so. Xray w/o
clear infiltrates in part limited by body habitus. He is on some oxygen but denies any cough. Hx of voiding difficulty for 1 week but no other signs of a UTI. Denies hx of BPH/stones. Chronic pain with chronic opioid dependence.
PLAN:
# Legionella pneumonia with Septic shock POA/ severe Sepsis POA
He is feeling better
c/w Doxy
Wean down O2 requirement as tolerated
Off pressure support medications, will resume home meds slowly
Appreciate ID & Pulmonary help
# BASIA - suspect secondary to sepsis
Improved renal function
Bladder scan improved acute urinary retention
- renal dose medications
# Non ischemic elevation of troponin due to sepsis
Troponin came down
No chest pain
#Hyponatremia - suspect sepsis
#CAD
No chest pain
- continue statin aspirin and Eliquis
# Paroxysmal AFIB
- amio 200 daily
- continue apixaban 5 bid for now
Head CT no acute findings
No falls at home
# TME, improved mentation
# IDDM
- Lantus 40 hs at home, continue 20 here
- sliding scale insulin
#COPD - no signs of acute exacerbation
- nebs prn for now
# Chronic pain syndrome with opioid dependency
- Pt is requesting to be placed back on his medications
Resume slowly
Baclofen
- prn oxycodone & long acting Oxy
- renal dose gabapentin
# Pancytopenias -
Improved counts overall. No active bleeding. No indication for blood transfusion
Check Iron level
- Normal b12/folate
DVT PPX - on apixaban
Code status - Full Code
Total time spent to see the patient, examine the patient, review data and lab results, discuss treatment plan with patient, nursing staff around 55 minutes�
Anticipated Discharge: > 48 hours
Subjective/Interval History
-
Date of Service: February 07, 2025
Objective Data
-
Labs:
Laboratory Results
02/07/25
04:08
WBC 11.2 H
Hgb 10.7 L
Hct 32.5 L
Plt Count 96 L D
Sodium 132 L
Potassium 4.0
Chloride 103
Carbon Dioxide 24
BUN 28 H
Creatinine 1.4 H
Glucose 156 H
Calcium 8.1 L
Vital Signs:
Vital Signs
Temp Pulse Resp BP Pulse Ox
98.1 F 63 21 136/59 100
02/07/25 07:51 02/07/25 09:00 02/07/25 09:00 02/07/25 08:57 02/07/25 08:00
I&O
02/06/25 02/07/25 02/08/25
06:59 06:59 06:59
Intake Total 547.5 / 555.0 1215.0 / 1215.0
Output Total 500 / 500 1200 / 1200
Balance 47.5 / 55.0 15.0 / 15.0
--- NOTE | 2025-02-07 09:13 | PTCARENOTE ---
pt wakes to name states 9/10 pain in back chronic. states no sob. dr infante made aware at bedside. resumed pt home pain medications. breath sounds diminished course with some ant wheezing. nc2l.
[2025-02-07] MEDS: NOVOLOG FLEXPEN-MODERATE RESISTANCE 1 UNITS SC (10:58)
[2025-02-07 11:11] LABS: Glucose - Point of Care 156 mg/dl (70-99)
--- NOTE | 2025-02-07 11:41 | CM ---
Initial assessment completed with patient who lives with his , D-I-L and S-I-L in a 3 story home plus basement, 2 steps to enter, B/B on . [employer] patient was independent in ADL's and ambulation, drives. Has a SPC and RW in the home. No in-home
services. Does have HC-POA. No VA benefits. No psychiatric hospitalizations. PCP is Dr. Mary Samson. Pharmacy is [facility] on [address] in [place]. Discharge POC: TBD.
[2025-02-07] MEDS: ROXICODONE 30 MG PO (14:05)
[2025-02-07 14:06] LABS: Lyme Antibody Screen, EIA Negative (Negative)
--- NOTE | 2025-02-07 15:10 | W.PN.NEPH.PH ---
Today's Communication / Plan
-
follow labs
FR , increase solute intake
Assessment/Plan
-
Impression:
Sepsis (fever hypotension)
PNA-Legionella
Acute kidney injury
Hyponatremia
Coronary artery disease
Atrial fibrillation
Diabetes
COPD
Plan:
BASIA: cr improving to 1.4
- Likely prerenal etiology in setting of evolving sepsis with hemodynamic instability
UA is bland, CT shows no hydro, bilat perinephric starnding
follow PVR, 575cc on 02/06
Check postvoid bladder scan to assure there is no obstructive component
- Holding Lasix and Entresto
improving hypovolemic hyponatremia, maintain FR
BP stable off pressors
adjust meds for changing GFR
d/w pt
-
-
Date of Service: February 07, 2025
CC / HPI / ROS
-
Chief Complaint:
BASIA, hyponatremia
History of Present Illness:
cr improving to 1.4, sodium better at 132
bp stable off pressors
plt are low 96-improving
Review of Systems:
no cp or sob
feels well, decreased appetite
Labs
-
Labs:
WBC 11.2 10^3/uL (4.8-10.8) H 02/07/25 04:08
RBC 3.64 10^6/uL (4.70-6.10) L 02/07/25 04:08
Hgb 10.7 g/dL (13.0-18.0) L 02/07/25 04:08
Hct 32.5 % (39.0-52.0) L 02/07/25 04:08
Plt Count 96 10^3/uL (130-400) L D 02/07/25 04:08
Sodium 132 mmol/L (135-145) L 02/07/25 04:08
Potassium 4.0 mmol/L (3.5-5.1) 02/07/25 04:08
Chloride 103 mmol/L (98-107) 02/07/25 04:08
Carbon Dioxide 24 mmol/L (22-30) 02/07/25 04:08
BUN 28 mg/dl (9-20) H 02/07/25 04:08
Creatinine 1.4 mg/dL (0.7-1.3) H 02/07/25 04:08
eGFR 54.75 02/07/25 04:08
Glucose 156 mg/dl (70-99) H 02/07/25 04:08
Calcium 8.1 mg/dl (8.4-10.2) L 02/07/25 04:08
Albumin 3.5 g/dl (3.5-5.0) 02/06/25 00:06
Physical Exam
-
Vital Signs:
Vital Signs
Temp Pulse Resp BP Pulse Ox
98.1 F 66 18 136/59 96
02/07/25 07:51 02/07/25 12:12 02/07/25 12:12 02/07/25 08:57 02/07/25 12:12
Cardiovascular:: Regular rate and rhythm
Respiratory:: Bilateral: CTA
Lung Excursion:: Normal
Abdomen:: Nontender and Soft
Extremity Edema:: None: Bilateral:
Sommers Catheter: No
--- NOTE | 2025-02-07 15:58 | PTCARENOTE ---
assumed care of patient from ICU. AOx3 coarse b/l LL L>R. RA. NSR abd round obese. +BS x4 skin CDI PVD appearance discoloration B/L LE. No edema +PP b/l. Oriented to surroundings, CB in reach.
--- NOTE | 2025-02-07 15:59 | PTCARENOTE ---
report given to 3w RN. pt transferred with belongings eye glasses and cell phone.
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
[2025-02-07 16:54] LABS: Glucose - Point of Care 264 mg/dl (70-99)
[2025-02-07] MEDS: NOVOLOG FLEXPEN-MODERATE RESISTANCE 5 UNITS SC (17:38)
[2025-02-07] MEDS: LIPITOR 80 MG PO (17:38)
[2025-02-07 21:18] LABS: Glucose - Point of Care 226 mg/dl (70-99)
[2025-02-07] MEDS: LANTUS 0.2 UNITS SC (21:21)
[2025-02-07] MEDS: TYLENOL 650 MG PO (21:26)
[2025-02-08 03:10] VITALS: BP 150/78
[2025-02-08] MEDS: ROXICODONE 30 MG PO (03:40)
[2025-02-08 06:00] VITALS: BMI 34.9
[2025-02-08] MEDS: SYNTHROID 25 MCG PO (06:17)
[2025-02-08 07:00] VITALS: BP 149/74
[2025-02-08] MEDS: DUONEB 3 ML INH (07:12)
[2025-02-08 07:42] LABS: Hematocrit 30.9 % (39.0-52.0); Hemoglobin 10.3 g/dL (13.0-18.0); Mean Corp Hgb Conc. 33.3 g/dL (33.0-37.0); Mean Corpuscular Volume 88.3 fL (80.0-94.0); Platelet Count 122 10^3/uL (130-400); Red Cell Dist. Width 13.6 % (11.5-14.5)
[2025-02-08 08:09] LABS: Blood Urea Nitrogen 17 mg/dl (9-20); Calcium 8.1 mg/dl (8.4-10.2); Carbon Dioxide 26 mmol/L (22-30); Chloride 108 mmol/L (98-107); Estimated Creatinine Clearance 68 ml/min; Glucose 154 mg/dl (70-99); Iron 28 ug/dl (49-181); Potassium 3.7 mmol/L (3.5-5.1); Sodium 136 mmol/L (135-145); eGFR 59.84
[2025-02-08 08:50] LABS: Glucose - Point of Care 166 mg/dl (70-99)
[2025-02-08] MEDS: ASPIR LOW (ENTERIC COATED) 81 MG PO (09:44)
[2025-02-08] MEDS: FLOMAX 0.4 MG PO (09:44)
[2025-02-08] MEDS: PROTONIX 40 MG PO (09:45)
[2025-02-08] MEDS: ELIQUIS 5 MG PO (09:45)
[2025-02-08] MEDS: COREG 12.5 MG PO (09:45)
[2025-02-08] MEDS: PACERONE 400 MG PO (09:45)
[2025-02-08] MEDS: VIBRAMYCIN 100 MG PO (09:45)
[2025-02-08] MEDS: LIORESAL 20 MG PO (09:46)
[2025-02-08] MEDS: NEURONTIN 300 MG PO (09:46)
[2025-02-08] MEDS: OXYCONTIN (CONTROLLED RELEASE) 20 MG PO (09:48)
[2025-02-08] MEDS: NOVOLOG FLEXPEN-MODERATE RESISTANCE 1 UNITS SC (09:52)
--- NOTE | 2025-02-08 10:14 | W.PN.HOSP.TC ---
Today's Communication/Plan
-
Discharge
Assessment / Plan
Assessment / Plan
Physical Exam
General: No Apparent Distress and Morbidly Obese
HEENT: NormoCephalic, Moist mucous membranes, Atraumatic, PERRLA and Oxygen
Respiratory: clean, no rales or wheezes.
Cardiac: S1/S2
GI: Soft, Non Tender and Normal Bowel Sounds;
Genito-urinary: No hematuria
Musculoskeletal: No Clubbing, No Cyanosis and No Edema
Skin: No Rash
Neuro: AO x 3 and Nonfocal/grossly intact. Gait is normal.
Psych: Calm
70 M h/o CAD s/p multivessel stenting, pAFIB on AC, VTach s/p ICD, COPD, HTN presenting with weakness, fever and decreased responsiveness. Hypotensive on arrival. Tmax 100.6 here. Source unclear. U/A is positive but not markedly so. Xray w/o
clear infiltrates in part limited by body habitus. He is on some oxygen but denies any cough. Hx of voiding difficulty for 1 week but no other signs of a UTI. Denies hx of BPH/stones. Chronic pain with chronic opioid dependence.
PLAN:
# Legionella pneumonia with Septic shock POA/ severe Sepsis POA
Acute hypoxic respiratory failure. Resolved
He is feeling better, mild cough. No hypoxia. Able to ambulate without shortness of breath. Afebrile. Blood culture did not show any growth.
Appreciate pulmonary and ID, will do total 14 days of oral doxycycline.
c/w Doxy
# BASIA -resolved. Can resume medications. Bladder scan did not show retention. Able to void spontaneous
# Non ischemic elevation of troponin due to sepsis
Troponin came down. Repeat troponin is negative
No chest pain
#Hyponatremia -resolved
#CAD
No chest pain
- continue statin aspirin and Eliquis
# Paroxysmal AFIB
- amio 200 daily
- continue apixaban 5 bid for now
Head CT no acute findings
No falls at home
# TME, back to normal baseline. PT/OT did not show skilled needs
# IDDM
No changes recommended.
#COPD - no signs of acute exacerbation
Will need outpatient follow-up with pulmonary
# Chronic pain syndrome with opioid dependency
Patient is tolerating his pain medication regimen.
# Pancytopenias -
Improved counts overall. No active bleeding. No indication for blood transfusion
Low iron. Order oral iron upon discharge
- Normal b12/folate
DVT PPX - on apixaban
Code status - Full Code
Total discharge time spent to see the patient, examine the patient, review data and lab results, discuss discharge plan with patient, nursing staff around 65 minutes�
Anticipated Discharge: Today
Subjective/Interval History
-
Date of Service: February 08, 2025
No chest pain or sob or abdominal pain, requesting discharge
Objective Data
-
Labs:
Laboratory Results
02/08/25
06:31
WBC 8.1
Hgb 10.3 L
Hct 30.9 L
Plt Count 122 L D
Sodium 136
Potassium 3.7
Chloride 108 H
Carbon Dioxide 26
BUN 17
Creatinine 1.3
Glucose 154 H
Calcium 8.1 L
Vital Signs:
Vital Signs
Temp Pulse Resp BP Pulse Ox
98.3 F 62 18 149/74 92
02/08/25 07:00 02/08/25 07:16 02/08/25 07:16 02/08/25 07:00 02/08/25 07:16
I&O
02/07/25 02/08/25 02/09/25
06:59 06:59 06:59
Intake Total 1215.0 / 1215.0 930 / 930
Output Total 1200 / 1200
Balance 15.0 / 15.0 930 / 930
[2025-02-08 11:00] VITALS: BP 131/67
--- NOTE | 2025-02-08 11:10 | W.PN.ID1 ---
Date of Service
Date of Service: February 08, 2025
Today's Communication
Continue antibiotics.
Assessment / Plan
Legionella pneumonia
Fever
Leukocytosis
Acute encephalopathy
Hypotension; now off pressors.
Anemia
Thrombocytopenia
Hyponatremia
BASIA
P A-fib
CAD; [place] x 4
CHF
HTN
HLD
DM type II
Chronic back pain
Recommendations:
Continue with current course of doxycycline, to complete 14 days in total.
Follow-up chest x-ray in 4 to 6 weeks.
����������������������������������������������������������
Chief Complaint
-: Pneumonia (Legionella)
Subjective / Review of Systems
Review of Systems: No Fever, No Chills, Cough, Sputum Production, No Nausea and No Vomiting
Vital Signs / Physical Exam
Vital Signs
Vital Signs
Temp Pulse Resp BP Pulse Ox
98.3 F 62 18 149/74 92
02/08/25 07:00 02/08/25 07:16 02/08/25 07:16 02/08/25 07:00 02/08/25 07:16
Physical Exam
Constitutional: No Acute Distress, Comfortable and Non-toxic
Cardiovascular: S1/S2; Negative S3/S4
Pulmonary: Coarse and Non Labored
Gastrointestinal: Soft, Non Tender and Non Distended
Neurological: Awake and Alert
Psychological: Calm
Objective Data
Lab Data
Lab Results
02/08/25 06:31
02/08/25 06:31
Estimated Creat Clear 68 ml/min 02/08/25 06:31
Lactic Acid 0.7 mmol/L (0.7-2.0) 02/06/25 06:00
Total Bilirubin 1.1 mg/dl (0.2-1.3) 02/06/25 00:06
AST 118 U/L (17-59) H 02/06/25 00:06
ALT 23 U/L (0-50) 02/06/25 00:06
Alkaline Phosphatase 62 U/L (38-126) 02/06/25 00:06
Most recent labs reviewed.
Micro Results:
02/06/25 01:25 Blood Culture - Preliminary
Blood/Venous No Growth in 48 hours- Final report to follow
02/06/25 00:40 Blood Culture - Preliminary
Blood/Venous No Growth in 48 hours- Final report to follow
02/06/25 01:33 Urine Culture - Final
Urine NO GROWTH
02/06/25 10:24 Blood Parasites Smear - Final
Blood/Venous
02/06/25 06:00 Nasal Screen MRSA (PCR) - Final
Nose MRSA not detected - performed by PCR methodology.
02/06/25 01:33 Legionella Urinary Antigen - Final
Urine Positive for L. pneumophila Ag
Streptococcus pneumoniae Antigen (M - Final
Negative for Streptococcus pneumoniae antigen.
A negative result does not exclude infection with
Streptococcus pneumoniae. Clinical correlation is
recommended.
02/06/25 00:40 Influenza Types A & B (TIFFANIE) - Final
Nasal Swab Negative for Influenza A & B, NAAT
Negative results must be combined with clinical observations
and patient history.
Nucleic Acid Amplification test (NAAT)performed on the
[employer] platform.
Imaging:
02/06/2025 CT abdomen/pelvis, CT chest: severe confluent consolidation in the superior segment of the left lower lobe with air bronchograms. Scattered patchy ground glass densities throughout the right upper lobe. No pleural effusion. No
pericardial effusion or enlarged lymph nodes.
02/06/2025 CXR (2 view): small left pleural effusion with associated consolidation. Right lung is clear. No visualized pneumothorax. Please see full dictation for additional detail.
Care Review
Plan reviewed with: Physician (Hospitalist)
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
[2025-02-08 11:55] LABS: Glucose - Point of Care 236 mg/dl (70-99)
--- NOTE | 2025-02-08 13:35 | W.PN.NEPH.PH ---
Today's Communication / Plan
-
Follow BMP
Observe
Assessment/Plan
-
Impression:
Sepsis (fever hypotension)
PNA-Legionella
Acute kidney injury
Hyponatremia
Coronary artery disease
Atrial fibrillation
Diabetes
COPD
Plan:
BASIA: cr improving to 1.3
- Likely prerenal etiology in setting of evolving sepsis with hemodynamic instability
UA is bland, CT shows no hydro, bilat perinephric starnding
follow PVR, 575cc on 02/06
Check postvoid bladder scan to assure there is no obstructive component
- Holding Lasix and Entresto
improving hypovolemic hyponatremia (136) maintain FR
BP stable off pressors
adjust meds for changing GFR
d/w pt
-
-
Date of Service: February 08, 2025
CC / HPI / ROS
-
Chief Complaint:
BASIA, hyponatremia
History of Present Illness:
cr improving to 1.2 sodium better at 134
bp stable off pressors
plt are low 122-improving
Review of Systems:
no cp or sob
feels well, decreased appetite
Labs
-
Labs:
WBC 8.1 10^3/uL (4.8-10.8) 02/08/25 06:31
RBC 3.50 10^6/uL (4.70-6.10) L 02/08/25 06:31
Hgb 10.3 g/dL (13.0-18.0) L 02/08/25 06:31
Hct 30.9 % (39.0-52.0) L 02/08/25 06:31
Plt Count 122 10^3/uL (130-400) L D 02/08/25 06:31
Sodium 136 mmol/L (135-145) 02/08/25 06:31
Potassium 3.7 mmol/L (3.5-5.1) 02/08/25 06:31
Chloride 108 mmol/L (98-107) H 02/08/25 06:31
Carbon Dioxide 26 mmol/L (22-30) 02/08/25 06:31
BUN 17 mg/dl (9-20) 02/08/25 06:31
Creatinine 1.3 mg/dL (0.7-1.3) 02/08/25 06:31
eGFR 59.84 02/08/25 06:31
Glucose 154 mg/dl (70-99) H 02/08/25 06:31
Calcium 8.1 mg/dl (8.4-10.2) L 02/08/25 06:31
Albumin 3.5 g/dl (3.5-5.0) 02/06/25 00:06
Physical Exam
-
Vital Signs:
Vital Signs
Temp Pulse Resp BP Pulse Ox
97.9 F 76 20 131/67 98
02/08/25 11:00 02/08/25 11:00 02/08/25 11:00 02/08/25 11:00 02/08/25 11:00
Cardiovascular:: Regular rate and rhythm
Respiratory:: Bilateral: CTA
Lung Excursion:: Normal
Abdomen:: Nontender and Soft
Extremity Edema:: None: Bilateral:
Sommers Catheter: No
--- NOTE | 2025-02-08 14:11 | CM ---
Patient seen at bedside
Discharge today
offered VN-declined
IMM explained & signed. In chart
PLAN: Home, no needs
states family will transport
[2025-02-08] MEDS: NOVOLOG FLEXPEN-MODERATE RESISTANCE 3 UNITS SC (14:25)
--- NOTE | 2025-02-08 15:51 | PTCARENOTE ---
patient denies sob and chest pain, tolerating diet, vss, for discharge to home today. will continue to monitor.
[2025-02-08 16:17] VITALS: BP 136/75
[2025-02-08 16:29] LABS: Glucose - Point of Care 127 mg/dl (70-99)
[2025-02-08] MEDS: NOVOLOG FLEXPEN-MODERATE RESISTANCE SC (16:34)
--- NOTE | 2025-02-08 17:05 | PTCARENOTE ---
pt ambulating independently in room, gait steady, will continue to monitor.
--- NOTE | 2025-02-09 06:40 | W.DCSUMMARY ---
Discharge Summary
Discharge Data
Date of Admission: 02/06/25
Date of Discharge: 02/08/25
-
Pending Results: No
Hospital Course
70 years old male presented with weakness, fever, altered mental status. He was found to have mild hypoxia. Patient denies GI symptoms. Patient met the criteria of sepsis/septic shock. He was admitted to intensive care unit to receive fluid
resuscitation with pressure support medications. Patient was seen by ICU, ID doctors. Urine culture did not show any growth. Blood culture did not show any growth. He tested positive for Legionella antigen. Patient was diagnosed with Legionella
pneumonia. His breathing improved and did not need oxygen supplementation. He had renal insufficiency that later resolved. He was found to have mild anemia and iron deficiency anemia. He was advised to follow-up with his a primary care doctor
for further management. He was followed by registered sales assistant. Patient was transferred out of ICU. He was able to ambulate without shortness of breath. Pulmonary doctor recommended outpatient follow-up for presumed COPD management/sleep apnea.
Patient did not need oxygen on ambulation. Patient was discharged on doxycycline, he was counseled regarding potential side effects of doxycycline, he verbalized understanding. He remained hemodynamically stable and was discharged home with home
health services in a stable condition.
Discharge Plan
-
Patient Disposition: Home with Home Care
Discharge Diagnosis/Procedures: Legionella pneumonia
Septic shock on pressor, resolved.
Hyponatremia
Generalized weakness
Acute on chronic anemia
Thrombocytopenia
Acute kidney injury
Obstructive sleep apnea suspected--never had sleep study
Diabetes.
Hyperlipidemia.
Hypertension.
Paroxysmal atrial fibrillation on Eliquis.
Follow-up with your primary care doctor in 1 week.
You were discharged on oral iron for iron deficiency anemia
You are discharged on oral antibiotic called doxycycline. Possible side effects of doxycycline include photosensitivity(avoid direct sun exposure while on treatment), GI upset.
Diet: Diabetic, Carb Controlled
Activity: No restrictions
Driving Restrictions: As prior to admission
Referrals:
Sabrina Allen, DO [Active, Pulmonary Medicine] - in four to six weeks
Referral Note: PFT, sleep study
NONE,* [Family Provider, Internal Medicine]
Prescriptions:
New
doxycycline hyclate 100 mg Capsule
100 mg PO BID Qty: 23 0RF
ferrous sulfate 325 mg (65 mg iron) tablet
325 mg PO DAILY Qty: 30 0RF
Continued
carvedilol 12.5 MG tablet
18.75 mg PO BID
aspirin 81 MG tablet,delayed release (DR/EC)
81 mg PO DAILY
metformin 1,000 MG tablet
1,000 mg PO BID@0800,1700 Qty: 60 0RF
insulin aspart U-100 [Novolog FlexPen U-100 Insulin] 300 UNITS/3 ML insulin pen
12 units SC AC
Patient Comments:
10/06/18 SS; PT REPORT HE WILL OCCASIONALLY TAKE MORE AFTER HE EATS WHEN HE RECHECKS HIS BS.
tizanidine 4 MG tablet
4 mg PO BID
gabapentin 400 MG capsule
800 mg PO BID
oxycodone 15 MG tablet
30 mg PO Q6HPRN PRN (Reason: breakthrough pain)
baclofen 20 MG tablet
20 mg PO BID
Levemir U-100 Insulin 1,000 UNITS/10 ML solution
40 units SC HS
atorvastatin 80 MG tablet
80 mg PO QPM Qty: 30 1RF
clopidogrel 75 MG tablet
75 mg PO DAILY Qty: 30 1RF
Eliquis 5 MG tablet
5 mg PO BID Qty: 60 1RF
bupropion HCl 150 MG tablet sustained-release 12 hr
150 mg PO BID
Patient Comments:
take 1 tablet every morning for 3 days, then 1 tablet BID
amiodarone [Pacerone] 200 MG tablet
400 mg PO DAILY
tizanidine 4 MG tablet
4 mg PO DAILYPRN PRN (Reason: spasms)
oxycodone [OxyContin] 20 MG tablet,oral only,ext.rel.12 hr
20 mg PO Q12 0RF
trazodone 50 mg Tablet
50 mg PO HS
spironolactone 25 mg Tablet
25 mg PO DAILY
levothyroxine 25 mcg Tablet
25 mcg PO DAILY
alprazolam 0.25 mg Tablet
0.25 mg PO TID PRN (Reason: Reduction Of Transepidermal Water Loss)
tamsulosin 0.4 mg Capsule
0.4 mg PO DAILY
pantoprazole 40 mg Tablet,Delayed Release (Dr/Ec)
40 mg PO DAILY
furosemide 20 mg Tablet
20 mg PO DAILY
Trulicity 0.75 mg/0.5 mL Pen Injector
0.75 mg SC QWEEK
sacubitril-valsartan 24-26 mg Tablet
1 tab PO BID
Discharge Orders:
Discharge Patient (As Directed); Ordered 02/08/25
Ordered By: Papi Rodríguez
Discharge Date and Time
Discharge Date/Time: 02/08/25 18:13
Print Language: MAORI
== END 2025-02-08 18:13 | disposition home or self-care (01) | DRG 871 ==
LOC: 3 WEST ACU 03:44
PROVIDERS: ADMITTING PHYSICIAN Internal Medicine; ATTENDING PHYSICIAN Internal Medicine; CONSULT PHYSICIAN Internal Medicine; CONSULT PHYSICIAN Internal Medicine Infectious Disease; EMERGENCY PHYSICIAN Emergency Medicine; OTHER PHYSICIAN Specialist
DX: A41.9 Sepsis, unspecified organism (principal); A48.1 Legionnaires' disease; N17.0 Acute kidney failure with tubular necrosis; R65.21 Severe sepsis with septic shock; J18.9 Pneumonia, unspecified organism; G92.8 Other toxic encephalopathy; E87.1 Hypo-osmolality and hyponatremia; F11.20 Opioid dependence, uncomplicated; J44.0 Chronic obstructive pulmonary disease with (acute) lower respiratory infection; N39.0 Urinary tract infection, site not specified; D61.818 Other pancytopenia; I5A Non-ischemic myocardial injury (non-traumatic); F17.210 Nicotine dependence, cigarettes, uncomplicated; E11.65 Type 2 diabetes mellitus with hyperglycemia; E78.00 Pure hypercholesterolemia, unspecified; I50.9 Heart failure, unspecified; I11.0 Hypertensive heart disease with heart failure; I25.10 Atherosclerotic heart disease of native coronary artery without angina pectoris; I48.0 Paroxysmal atrial fibrillation; M54.9 Dorsalgia, unspecified; D50.9 Iron deficiency anemia, unspecified; D69.6 Thrombocytopenia, unspecified; R35.1 Nocturia; R09.02 Hypoxemia; I25.5 Ischemic cardiomyopathy; G89.4 Chronic pain syndrome; G47.33 Obstructive sleep apnea (adult) (pediatric); E66.01 Morbid (severe) obesity due to excess calories; Z79.82 Long term (current) use of aspirin; Z79.84 Long term (current) use of oral hypoglycemic drugs; Z79.4 Long term (current) use of insulin; Z79.02 Long term (current) use of antithrombotics/antiplatelets; Z79.01 Long term (current) use of anticoagulants; Z95.810 Presence of automatic (implantable) cardiac defibrillator; Z79.85 Long-term (current) use of injectable non-insulin antidiabetic drugs; Z71.6 Tobacco abuse counseling; Z79.890 Hormone replacement therapy; Z91.041 Radiographic dye allergy status; Z88.1 Allergy status to other antibiotic agents; Z88.2 Allergy status to sulfonamides; Z68.35 Body mass index [BMI] 35.0-35.9, adult; I25.2 Old myocardial infarction; Z11.52 Encounter for screening for COVID-19; Z95.5 Presence of coronary angioplasty implant and graft; Z90.49 Acquired absence of other specified parts of digestive tract
CPT/HCPCS: 70450; 71046; 71250; 74176; 80048; 80053; 80143; 80179; 80306; 80307; 81003; 81015; 82077; 82140; 82533; 82570; 82607; 82746; 82962; 83036; 83540; 83605; 83935; 84300; 84484; 85027; 86618; 87015; 87040; 87086; 87207; 87449; 87502; 87641; 87811; 87899; 93005; 94640; 96361; 96365; 96375; 97163; 97167; 99291

== ENCOUNTER → 2025-03-17 11:19 | Outpatient (REF) | payer OTHER, SELFPAY | LOC: RCS 11:19 | PROVIDERS: ATTENDING PHYSICIAN Nurse Practitioner; FAMILY PHYSICIAN Family Medicine | DX: I25.5 Ischemic cardiomyopathy (principal) | CPT/HCPCS: 93306 ==